=== PATIENT | male | born 1940 | race Caucasian/White ===

== ENCOUNTER → 2018-07-21 | Outpatient (CLI) | payer MEDICARE ==
[2018-07-21 15:08] LABS: BASOPHILS % (AUTO) 1 % (0-10); EOSINOPHILS # (AUTO) 0.1 10^3/uL (0.0-0.3); EOSINOPHILS % (AUTO) 1 % (0-10); HEMATOCRIT 40 % (40-54); HEMOGLOBIN 13.2 G/DL (13.3-17.7); LYMPHOCYTES # (AUTO) 1.2 X 10^3 (1.0-4.0); LYMPHOCYTES % (AUTO) 14 % (12-44); MEAN CORPUSCULAR HEMOGLOBIN 31 PG (25-34); MEAN CORPUSCULAR HGB CONC 33 G/DL (32-36); MEAN CORPUSCULAR VOLUME 93 FL (80-99); MEAN PLATELET VOLUME 9.3 FL (7.4-10.4); MONOCYTES # (AUTO) 0.9 X 10^3 (0.0-1.0); MONOCYTES % (AUTO) 10 % (0-12); NEUTROPHILS # (AUTO) 6.1 X 10^3 (1.8-7.8); NEUTROPHILS % (AUTO) 74 % (42-75); PLATELET COUNT 248 10^3/uL (130-400); RED CELL DISTRIBUTION WIDTH 13.5 % (10.0-14.5); WHITE BLOOD COUNT 8.3 10^3/uL (4.3-11.0)
[2018-07-21 15:24] LABS: ALBUMIN 3.6 GM/DL (3.2-4.5); BILIRUBIN,TOTAL 0.4 MG/DL (0.1-1.0); CALCIUM 9.3 MG/DL (8.5-10.1); CREATININE SERUM 1.96 MG/DL (0.60-1.30); POTASSIUM 5.4 MMOL/L (3.6-5.0); TOTAL PROTEIN 6.3 GM/DL (6.4-8.2)
[2018-07-21 15:45] LABS: ABG BASE EXCESS 0.1 MMOL/L (-2.5-2.5); ABG OXYGEN SATURATION 97 % (94-100); ABG PCO2 37 MMHG (35-45); ABG PH 7.42 (7.37-7.43); ABG PO2 74 MMHG (79-93); ABG TCO2 25.8 MMOL/L (21.0-31.0)
[2018-07-21 15:48] LABS: ALLENS TEST YES-POS; INSPIRED O2 ROOM AIR
[2018-07-21 15:49] LABS: PATIENT TEMP 94.4; VENTILATOR NO
== END ==
LOC: LAB 14:26
PROVIDERS: ATTEND Internal Medicine Critical Care Medicine
DX: J44.9 Chronic obstructive pulmonary disease, unspecified (principal); R06.00 Dyspnea, unspecified; J30.9 Allergic rhinitis, unspecified; R06.89 Other abnormalities of breathing; R05 Cough; J98.4 Other disorders of lung; Z72.0 Tobacco use
CPT/HCPCS: 36415; 36600; 80053; 82805; 83880; 85025

== ENCOUNTER → 2018-07-28 | Outpatient (CLI) | payer MEDICARE, OTHER ==
[~2018-07-28] MED LIST: DOCU-238 PO; ISOS30TA3 PO; LISI-556 PO; MAGN400T39 PO; METO1TAB38 PO; OMEG-33 PO; PROP1DRO7 OP; SAW160CA3 PO; WARF3TAB56 PO
--- NOTE | 2018-07-29 07:41 | Diagnostic Imaging Report ---
EXAMINATION: PET/CT INDICATION: Lung mass TECHNIQUE: PET/CT imaging was obtained from the base of the skull through the pelvis after the administration of 12.84 mCi of F-[address] imaging was utilized for localization and attenuation correction purposes. The low energy CT utilized for attenuation correction is not considered to be of high enough spatial resolution to allow in and of itself a separate anatomical analysis. There are no prior PET/CT examinations available for comparison. The CT chest exam from [facility] performed on 07/09/2018 was reviewed. That study did reveal a 2.6 x 4.1 CM mass in the aorticopulmonary window. On this study that mass is hypermetabolic and consequently should be considered neoplastic until proven otherwise. There is also a small intense focus of increased activity in the left ilium adjacent to the left sacroiliac joint (CT image 219 of 1382) this has a maximum SUV of 9.7 and consequently should be considered secondary to metastatic disease until proven otherwise. There is also a sizable 2.1 x 3.4 CM hyperintense focus along the medial aspect of the left femoral head. This has a maximum SUV of 34.1. This too could be secondary to neoplastic disease. The possibility that this is related to an underlying abnormality such as avascular necrosis should also be considered. If further imaging is desired, then MRI would be recommended. There is no other hypermetabolic activity identified however to suggest the presence of neoplasm. There is generalized uptake in the musculature along the posterior aspect of the neck and in the paraspinal region predominantly on the right at the thoracolumbar junction. This abnormal uptake is felt to be related to muscular activity and as opposed to neoplastic disease. There is also physiologic activity in the brain, the heart, the kidneys, the bowel and the bladder. The CT images also show that there is a small paracardial effusion. This was present on the prior exam and has not changed significantly. The effusion measures approximately 1 CM in depth. The intracranial contents were visualized are unremarkable. IMPRESSION: 1. The mass in the aortopulmonary window seen on the recent CT chest exam is hypermetabolic. This finding should be considered neoplastic until proven otherwise. 2. The focal area of increased activity in the left ilium adjacent to the sacroiliac joint is also most likely due to neoplastic disease. However the larger more intense area of abnormal uptake in the left femoral head is of uncertain etiology although this may well be neoplastic in nature. Recommendations as above. 3. There is no other hypermetabolic activity to suggest the presence of neoplasm. 4. There is a small pericardial effusion. Dictated by: Dictated on workstation # [id number]
== END ==
LOC: RAD 09:49
PROVIDERS: ATTEND Nurse Practitioner Family
DX: J44.9 Chronic obstructive pulmonary disease, unspecified (principal); J30.9 Allergic rhinitis, unspecified; I31.3 Pericardial effusion (noninflammatory); J98.4 Other disorders of lung; R91.8 Other nonspecific abnormal finding of lung field; Z72.0 Tobacco use

== ENCOUNTER 2018-07-29 07:58 | Day surgery (SDC) | payer MEDICARE, OTHER ==
[~2018-07-29] VITALS: Ht 175.3 cm; Wt 59.0 kg
[2018-07-29] MEDS ORDERED: LIDOCAINE PF 2% 5 ML (XYLOCAINE) VIAL INJ ONE (07:59)
[2018-07-29] MEDS ORDERED: 0.9% SODIUM CHLORIDE PF INJ 10 ML VIAL IV ONE (07:59)
[2018-07-29] MEDS ORDERED: LIDOCAINE PF 1% 2 ML VIAL (OR ONLY) IJ ONE (07:59)
[2018-07-29] MEDS ORDERED: EPINEPHrine INJECTION 1 MG/ML AMP IJ ONE (07:59)
[2018-07-29 08:05] VITALS: BP 155/89
--- OUTSIDE RECORDS SUMMARY | 2018-07-29 08:22 | XMS REPORT | Continuity of Care Document ---
Author Organization Unknown Address Unknown Allergies Active Description Code Type Severity Reaction Onset Reported/Identified Relationship to Patient Clinical Status Yes Penicillins 476 Unknown RASH Yes No Known Drug Allergy Drug Allergy Unknown N/A 04/18/2016 Yes No Known Drug Category Allergy Drug Allergy Unknown N/A 04/18/2016 Yes No Known Environment Allergy Environmental Allergy Unknown N/A 04/18/2016 Yes No Known Food Allergy Food Allergy Unknown N/A 04/18/2016 Yes No Known Allergies 471019 Unknown N/A 04/26/2016 Medications Medication Packaging Start Date Stop Date Route Dosage Sig Ocuvel 0.5 mg-250 mg-200 unit-40 mg capsule Ampule 04/18/2016 0.5-250-200- 40 wi-np-hdwd-mg 1 (one) by Oral route daily Aleve 220 mg tablet Ampule 2015 220 mg take 1 ( one) Tablet by Oral route daily Fish Oil 500 mg capsule Capsule 500 mg take 1 (one) Capsule by Oral route daily saw palmetto 160 mg capsule Ampule 04/18/2016 160 mg take 1 (one) Capsule by Oral route daily latanoprost 0.005 % eye drops Ampule 04/18/2016 0.005 % 1 (one) daily Ventolin HFA 90 mcg/actuation aerosol inhaler Ampule 04/18/2016 90 mcg/ actuation 1 (one) daily Stool Softener 100 mg capsule Capsule 04/18/2016 100 mg take 1 (one) Capsule by Oral route daily Centrum Silver 0.4 mg-300 mcg-250 mcg tablet Tablet 04/18/2016 0.4-300-250 mg -mcg-mcg 1 (one) by Oral route daily DOCUSATE SODIUM 04/29/2016 04/29/2016 BIDPRN ACETAMINOPHEN 04/29/2016 04/29/2016 Q4HPRN ACETAMINOPHEN 04/29/2016 04/29/2016 Q4HPRN ALUM-MAG HYDROXIDE-SIMETH 201604/29/2016 Q4HPRN MAGNESIUM HYDROXIDE 04/29/2016 04/29/2016 HSPRN PNEUMOCOCCAL 23-VALPS VACCINE 12/201604/29/2016 DIS SODIUM CHLORIDE 0.9 % 04/29/2016 04/29/2016 C HYDROCODONE-ACET 5-325MG 201604/29/2016 Q3HPRN ALBUTEROL SULFATE 04/29/2016 04/29/2016 Q4HPRN ONDANSETRON HCL 04/29/2016 04/29/2016 Q6HPRN METOCLOPRAMIDE 04/29/2016 04/29/2016 Q6HPRN MORPHINE 04/29/2016 [id number] NITROGLYCERIN 04/29/2016 04/29/2016 [id number] DOCUSATE SODIUM 04/29/2016 04/29/2016 BID ASPIRIN 04/29/201612/2016 0700 ASPIRIN, BUFFERED 04/29/2016 04/29/2016 QD MULTIVITAMIN 04/29/2016 04/29/2016 QAM CLOPIDOGREL 04/29/2016 04/29/2016 ONCE LATANOPROST 04/29/2016 04/29/2016 HS Problems Date Dx Coded Attending Type Code Diagnosis Diagnosed By 05/10/2016 Alexandra Brown I65.23 Occlusion and stenosis of bilateral carotid arteries Alexandra Brown 05/13/2016 Alexandra Brown I65.23 Occlusion and stenosis of bilateral carotid arteries Alexandra Brown 05/14/2016 Alexandra Brown F17.210 Nicotine dependence, cigarettes, uncomplicated Alexandra Brown 05/14/2016 Alexandra Brown I10 Essential (primary) hypertension Alexandra Brown 05/14/2016 Alexandra Brown I70.223 Atherosclerosis of [place] arteries of extremities with rest pain, bilateral legs Alexandra Brown 05/14/2016 Alexandra Brown R23.0 Cyanosis Alexandra Brown 05/15/2016 Alexandra Brown F17.210 Nicotine dependence, cigarettes, uncomplicated Alexandra Brown 05/15/2016 Alexandra Brown I10 Essential (primary) hypertension Alexandra Brown 05/15/2016 Alexandra Brown I70.223 Atherosclerosis of [place] arteries of extremities with rest pain, bilateral legs AnishAlexandra Kailash 05/15/2016 Alexandra Brown R23.0 Cyanosis Anish Alexandra Kailash 05/24/2016 Alexandra Brown I70.213 Atherosclerosis of [place] arteries of extremities with intermittent claudication, bilateral legs Anish Alexandra Linder 05/24/2016 Alexandra Brown N18.9 Chronic kidney disease, unspecified Anish Alexandra Kailash 05/27/2016 Alexandra Brown I70.213 Atherosclerosis of [place] arteries of extremities with intermittent claudication, bilateral legs Alexandra Brown 05/27/2016 Alexandra Brown N18.9 Chronic kidney disease, unspecified Alexandra Brown 06/17/2016 ALEXANDRA BROWN S I12.9 HYPERTENSIVE CHRONIC KIDNEY DISEASE WITH STAGE 1 THROUGH STAGE 4 CHRONIC KIDNEY DISEASE, OR UNSPECIFIED CHRONIC KIDNEY DISEASE ANISH ALEXANDRA A 06/17/2016 ALEXANDRA BROWN S I65.23 OCCLUSION AND STENOSIS OF BILATERAL CAROTID ARTERIES ANISH ALEXANDRA A 06/17/2016 ALEXANDRA BROWN P I70.223 ATHEROSCLEROSIS OF [place] BAND ARTERIES OF EXTREMITIES WITH REST PAIN, BILATERAL LEGS ANISH ALEXANDRA A 06/17/2016 ALEXANDRA BROWN S J44.9 CHRONIC OBSTRUCTIVE PULMONARY DISEASE, UNSPECIFIED ALEXANDRA BROWN 06/17/2016 ALEXANDRA BROWN S N18.9 CHRONIC KIDNEY DISEASE, UNSPECIFIED ALEXANDRA BROWN Procedures Code Description [place] [address] Duplex scan of extracranial arteries; complete bilateral study Alexandra Brown 05/10/2016 98060 Office or other outpatient visit for the evaluation and management of a new patient, which requires Alexandra Brown 05/14/2016 56584 Revascularization, endovascular, open or percutaneous, iliac artery, unilateral, initial vessel; Alexandra Christy 05/24/2016 11870 Revascularization, endovascular, open or percutaneous, iliac artery, each additional ipsilateral ayan Alexandra Brown 05/24/2016 24211 Revascularization, endovascular, open or percutaneous, femoral, popliteal artery(s), unilateral; Alexandra Christy 05/24/2016 12839 Aortography, abdominal, by serialography, radiological supervision and interpretation Alexandra Brown 05/24/2016 33783 Office or other outpatient visit for the evaluation and management of a new patient, which requires Alexandra Brown 05/27/2016 53902 Revascularization, endovascular, open or percutaneous, iliac artery, unilateral, initial vessel; Alexandra Christy 06/17/2016 04016 Revascularization, endovascular, open or percutaneous, iliac artery, each additional ipsilateral ayan Alexandra Brown 06/17/2016 75968 Revascularization, endovascular, open or percutaneous, femoral, popliteal artery(s), unilateral; Alexandra Christy 06/17/2016 03058 Aortography, abdominal, by serialography, radiological supervision and interpretation Alexandra Brown 06/17/2016 49151 Duplex scan of extracranial arteries; complete bilateral study Alexandra Brown 06/17/2016 Results Test Result Range CBC NO DIFF (HEMOGRAM) - 04/29/16 06:52 WBC - WHITE CELL COUNT 9.0 X10(3) 4.5- 11.0 RBC - RED CELL COUNT 4.23 X10(6) 4.60 -6.20 PLATELET COUNT 277 X10(3) 150- 450 HEMOGLOBIN 13.4 g/dl 13.5- 18.0 HEMATOCRIT 39.6 % 40.0- 54.0 MCV 93.6 fL 80.0- 96.0 MCH 32 pg 27-31 MCHC 33.8 % 32.0- 36.0 BMP - BASIC METABOLIC PANEL - 04/29/16 06:52 GLUCOSE 110 mg/dl 74- 106 BUN 23 mg/dl 7-18 CREATININE 1.67 mg/dl 0.70- 1.30 eGFR 40 mL/min SODIUM (NA) 140 mEq/L 136- 146 POTASSIUM, BLOOD 4.5 mEq/L 3.5- 5.1 CHLORIDE 104 mEq/L 98- 107 CO2 (BICARBONATE) 30 mEq/L 21-32 CALCIUM 9.0 mg/dl 8.5- 10.1 HOLD SPECIMEN FOR BLOOD BANK - 04/29/16 06:52 HOLD SPECIMEN FOR BLOOD BANK ARC SONOGRAM CAROTID - 05/03/16 09:59 Misc. Result, see notes for description See Attached Document NRG SONOGRAM CAROTID See Attached Document NRG Encounters ACCT No. Visit Date/Time Discharge Status Pt. Type Provider Facility Loc./Unit Complaint [id number] 04/29/2016 06:20:00 04/29/2016 15:10:00 DIS Outpatient ALEXANDRA BROWN [facility] 120 CLAUDICATION [id number] 05/24/2016 12:37:18 05/24/2016 23:59:59 CLS Outpatient Alexandra Brown
[2018-07-29] MEDS ORDERED: LACTATED RINGERS 1,000 ML IV PRN (08:30)
[2018-07-29] MEDS ORDERED: ISOS30TA3 PO (08:44)
[2018-07-29] MEDS ORDERED: LISI-556 PO (08:44)
[2018-07-29] MEDS ORDERED: SAW160CA3 PO (08:44)
[2018-07-29] MEDS ORDERED: WARF3TAB56 PO (08:44)
[2018-07-29] MEDS ORDERED: METO1TAB38 PO (08:44)
[2018-07-29] MEDS ORDERED: DOCU-238 PO (08:44)
[2018-07-29] MEDS ORDERED: PROP1DRO7 OP (08:48)
[2018-07-29] MEDS ORDERED: MAGN400T39 PO (08:48)
[2018-07-29] MEDS ORDERED: OMEG-33 PO (08:48)
[2018-07-29] MEDS ORDERED: proPOfol 200 MG/20 ML (DIPRIVAN) VIAL IV ONE (08:53)
[2018-07-29] MEDS ORDERED: DEXAMETHASONE 10 MG/ML (DECADRON) 1 ML VIAL ONE (08:53)
[2018-07-29] MEDS ORDERED: fentaNYL INJECTION 100 MCG/2 ML AMP ONE (08:53)
[2018-07-29 08:54] LABS: INR 1.1 (0.8-1.4); PROTHROMBIN TIME PATIENT 14.7 SEC (12.2-14.7)
[2018-07-29] MEDS ORDERED: ONDANSETRON 4 MG/2 ML (SDV) Z0FRAN ONE (08:54)
[2018-07-29] MEDS ORDERED: LIDOCAINE PF 2% 5 ML (XYLOCAINE) VIAL ONE (08:54)
[2018-07-29] MEDS ORDERED: ROCURONIUM 10 MG/ML 5 ML SYRINGE IV ONE (08:55)
[2018-07-29] MEDS ORDERED: GLYCOPYRROLATE 0.2 MG/ML (ROBINUL) 2 ML VIAL ONE (08:55)
[2018-07-29] MEDS ORDERED: NEOSTIGMINE 1 MG/ML 5 ML SYRINGE ONE (08:56)
[2018-07-29] MEDS ORDERED: SUCCINYLCHOLINE INJ 100 MG/5 ML SYR ONE (09:02)
[2018-07-29] MEDS ORDERED: PHENYLEPHRINE 100 MCG/ML 10 ML (ANESTHESIA) SYR ONE (09:31)
[2018-07-29] MEDS ORDERED: SEVOFLURANE (ULTANE) 15 ML INHAL SOLN ONE (09:56)
[2018-07-29] MEDS ORDERED: ONDANSETRON 4 MG/2 ML (SDV) Z0FRAN IVP PRN (10:15)
[2018-07-29] MEDS ORDERED: morphine INJ 10 MG/ML 1ML (SYR OR VIAL) IVP ONE (10:15)
--- NOTE | 2018-07-29 10:59 | Diagnostic Imaging Report ---
PATIENT HISTORY: POST BRONCHOSCOPY . TECHNIQUE: Frontal view of the chest COMPARISON: None FINDINGS: Lung volumes are large. There is a spiculated mass in the left hilar region. There are mild interstitial opacities at the lung bases. No pleural effusion or pneumothorax is seen. The cardiac silhouette is normal in size. There is aortic atherosclerosis. IMPRESSION: 1. Interstitial opacities of the lung bases, may be due to interstitial edema or scarring. 2. Spiculated mass at the left hilum. Dictated by: Dictated on workstation # [id number]
[2018-07-29 11:05] VITALS: BP 153/65
--- NOTE | 2018-07-29 11:13 | Diagnostic Imaging Report ---
EXAMINATION: Fluoroscopy INDICATION: Left upper lobe bronchus mass Fluoroscopic assistance was provided for Dr. Owens. 17 seconds of fluoroscopy time was utilized. A single spot film of the thorax was obtained. There is a bronchoscopic device overlying the aorticopulmonary window mass seen on the PET/CT exam performed on 07/28/2018. IMPRESSION: Fluoroscopic assistance was provided for Dr. Owens. Dictated by: Dictated on workstation # [id number]
[2018-07-29 11:35] VITALS: BP 142/67
--- NOTE | 2018-07-29 11:54 | Pulmonary Procedures ---
Pulmonary Procedures Date of Procedure Date of Service: Jul 29, 2018 Bronch Bronchoscopy with ANTHONY bronchoalveolar lavage (BAL), bilateral transbronchial washes and, ANTHONY transbronchial brushes. Preop DX ILD Postop DX: same No endobronchial lesion noted Complications: none After informed consent obtained and formal time out pt was sedated per anesthesia bronchoscope was advanced through the ET tube. 1% lidocaine was used to anesthetize naila, and left/right main stem bronchus. An anatomical tour was undertaken down to the segmental bronchi bilaterally. No endobronchial lesions noted.Bronchoscopy with ANTHONY bronchoalveolar lavage (BAL), bilateral transbronchial washes and, ANTHONY transbronchial brushes were obtained. Pt tolerated procedure well. No complications noted. Stat CXR is pending. MARILYN RAMSAY DO Jul 29, 2018 11:54
[2018-07-29 12:05] VITALS: BP 142/67
--- NOTE | 2018-07-29 14:28 | Anesthesia-General Post-Op ---
General Patient Condition Mental Status/LOC: Same as Preop Cardiovascular: Satisfactory Nausea/Vomiting: Absent Respiratory: Satisfactory Pain: Controlled Complications: Absent Post Op Complications Complications None Follow Up Care/Instructions Patient Instructions None needed. Anesthesia/Patient Condition Patient Condition Patient is doing well, no complaints, stable vital signs, no apparent adverse anesthesia problems. No complications reported per nursing. REYNA MORENO CRNA Jul 29, 2018 14:28
== END 2018-07-29 12:05 | disposition home or self-care (01) ==
LOC: ENDO 07:58
PROVIDERS: ATTEND Internal Medicine Critical Care Medicine
DX: J98.4 Other disorders of lung (principal); I10 Essential (primary) hypertension; F17.210 Nicotine dependence, cigarettes, uncomplicated; J44.9 Chronic obstructive pulmonary disease, unspecified; K21.9 Gastro-esophageal reflux disease without esophagitis; Z79.01 Long term (current) use of anticoagulants; Z79.899 Other long term (current) drug therapy; I48.91 Unspecified atrial fibrillation
CPT/HCPCS: 36415; 71045; 85610; 85730; 87015; 87070; 87101; 87116; 87205; 87206; 94640

== ENCOUNTER 2018-09-01 13:38 | Outpatient (RCR) | payer MEDICARE | END 2018-11-30 | disposition home or self-care (01) | LOC: ONC 13:38 | PROVIDERS: ATTEND Internal Medicine Hematology & Oncology | DX: C34.12 Malignant neoplasm of upper lobe, left bronchus or lung (principal); C79.51 Secondary malignant neoplasm of bone; I10 Essential (primary) hypertension; I48.91 Unspecified atrial fibrillation; J44.9 Chronic obstructive pulmonary disease, unspecified; F17.210 Nicotine dependence, cigarettes, uncomplicated; K21.9 Gastro-esophageal reflux disease without esophagitis; Z79.01 Long term (current) use of anticoagulants; Z79.899 Other long term (current) drug therapy | CPT/HCPCS: 99214 ==

== ENCOUNTER → 2019-02-08 | Outpatient (CLI) | payer MEDICARE ==
[2019-02-08 18:32] LABS: CLARITY,URINE TURBID
[2019-02-08 18:33] LABS: BACTERIA,URINE FEW /HPF; BILIRUBIN,URINE NEGATIVE (NEGATIVE); COLOR,URINE DARK YELLOW; GLUCOSE, URINE (UA) NEGATIVE (NEGATIVE); KETONES,URINE NEGATIVE (NEGATIVE); LEUKOCYTE ESTERASE ,URINE NEGATIVE (NEGATIVE); NITRITE,URINE NEGATIVE (NEGATIVE); PH,URINE 5.5 (5-9); PROTEIN,URINE NEGATIVE (NEGATIVE); RBC,URINE 25-50 /HPF
[2019-02-08 18:34] LABS: AMORPHOUS SEDIMENT,UR LARGE AMOR URATES /LPF
== END ==
LOC: IHC 18:00
PROVIDERS: ATTEND Family Medicine
DX: Z01.89 Encounter for other specified special examinations (principal)
CPT/HCPCS: 81000; 87088